=== PATIENT | male | born 1985 | race Caucasian/White ===

== ENCOUNTER 2019-02-01 14:06 | Emergency (ER) | payer MEDICAID ==
[~2019-02-01] VITALS: Ht 170.2 cm; Wt 76.7 kg
[2019-02-01 14:11] VITALS: Ht 170.2 cm; Wt 76.7 kg
[2019-02-01 14:55] VITALS: BP 127/80
== END 2019-02-01 14:55 | disposition home or self-care (01) ==
LOC: ED 14:06
DX: S61.232A Puncture wound without foreign body of right middle finger without damage to nail, initial encounter (principal); W22.8XXA Striking against or struck by other objects, initial encounter; Y93.89 Activity, other specified; Y92.89 Other specified places as the place of occurrence of the external cause; Y99.8 Other external cause status
CPT/HCPCS: 90715

== ENCOUNTER 2019-09-04 10:40 | Emergency (ER) | payer MEDICAID ==
[~2019-09-04] VITALS: Ht 167.6 cm; Wt 73.9 kg
[2019-09-04 10:48] VITALS: Ht 167.6 cm; Wt 73.9 kg
[2019-09-04 11:30] VITALS: BP 119/84
== END 2019-09-04 12:15 | disposition home or self-care (01) ==
LOC: ED 10:40
DX: F41.9 Anxiety disorder, unspecified (principal)